=== PATIENT | male | born 2000 | race Caucasian/White ===

== ENCOUNTER 2021-10-04 01:59 | Emergency (ER) | payer OTHER ==
[~2021-10-04] VITALS: Ht 177 cm; Wt 81.0 kg
[2021-10-04 02:07] VITALS: BP 98/29
--- NOTE | 2021-10-04 02:09 | ED Psychosocial ---
General Stated Complaint: ETOH INTOXICATION Source: patient, EMS Exam Limitations: no limitations History of Present Illness Date Seen by Provider: Oct 04, 2021 Time Seen by Provider: 01:57 Initial Comments 21-year-old male with no pertinent past medical history coming in with EMS due to alcohol intoxication. [place] and had numerous shots, and was found passed out in the front yard of someone's house. EMS was then called with the police. Vitals were normal for them. They started an IV and given 1 L of IV fluids. He is denying any pain anywhere, did not hit his head, and otherwise denying any other acute complaints. Allergies and Home Medications Allergies Coded Allergies: No Known Drug Allergies (Unverified , 10/04/21) Patient Home Medication List Home Medication List Reviewed: Yes Review of Systems Constitutional: No fever EENTM: No blurred vision Respiratory: no symptoms reported Cardiovascular: no symptoms reported Gastrointestinal: no symptoms reported Genitourinary: no symptoms reported Musculoskeletal: no symptoms reported Skin: no symptoms reported Psychiatric/Neurological: See HPI All Other Systems Reviewed Negative Unless Noted: Yes Past [id number]-[id number] Hx Patient Social History Substance use?: No Alcohol Use?: Yes Past Medical History Surgeries: No Physical Exam Vital Signs - First Documented 10/04/21 10/04/21 02:07 02:23 Temp 37.0 Pulse 96 Resp 16 B/P (MAP) 98/29 (52) Pulse Ox 98 O2 Delivery Room Air O2 Flow Rate 2.00 Capillary Refill : Height, Weight, BMI Height: '" Weight: lbs. oz. kg; BMI Method: General Appearance: WD/WN, no apparent distress HEENT: PERRL/EOMI, normal ENT inspection, pharynx normal Neck: non-tender, full range of motion, supple, normal inspection Respiratory: chest non-tender, lungs clear, normal breath sounds, no respiratory distress, no accessory muscle use Cardiovascular: regular rate, rhythm, no edema, no murmur Gastrointestinal: normal bowel sounds, non tender, soft; No distended, No guarding, No rebound Extremities: normal range of motion, non-tender, normal inspection, no pedal edema, no calf tenderness, normal capillary refill Neurologic/Psychiatric: no motor/sensory deficits, alert, normal mood/affect, oriented x 3, other (Sleepy but wakes up to voice, slurred speech, normal gait, no neurologic deficits, appears intoxicated) Appearance/Memory: appropriate appearance Behavior/Eye Contact: cooperative Thoughts/Hallucinations: normal thought pattern Skin: normal color, warm/dry Lymphatic: no adenopathy Progress/Results/Core Measures Results/Orders My Orders Orders - BRANDON CAMPBELL MD Cbc With Automated Diff (10/04/21 02:09) Comprehensive Metabolic Panel (10/04/21 02:09) Ed Iv/Invasive Line Start (10/04/21 02:09) Lactated Ringers (Lr 1000 Ml Iv Solution (10/04/21 02:15) Ondansetron Injection (Zofran Injectio (10/04/21 02:15) Medications Given in ED Current Medications Medications Dose Ordered Sig/Dajuan Route Start Time Stop Time Status Last Admin Dose Admin Lactated Ringer's 1,000 ml @ 0 mls/hr Q0M ONCE IV 10/04/21 02:15 10/04/21 02:16 DC 10/04/21 02:16 0 MLS/HR Ondansetron HCl 4 mg ONCE ONCE IVP 10/04/21 02:15 10/04/21 02:16 DC 10/04/21 02:15 4 MG Vital Signs/I&O 10/04/21 10/04/21 02:07 02:23 Temp 37.0 Pulse 96 89 Resp 16 15 B/P (MAP) 98/29 (52) 92/49 Pulse Ox 98 99 O2 Delivery Room Air Nasal Cannula O2 Flow Rate 2.00 Progress Progress Note : Progress Note 21-year-old male coming in due to alcohol intoxication. He is sleepy and slurring words consistent with alcohol intoxication. Vitals are otherwise unremarkable. Neuro exam unremarkable. Friends later arrived and they are willing to watch him tonight. Patient was able to ambulate out of here with them. They will bring him back if they have any concerns tonight. Departure Impression Primary Impression: Acute alcoholic intoxication Qualified Codes: F10.920 - Alcohol use, unspecified with intoxication, uncomplicated Disposition: 01 HOME, SELF-CARE Condition: Stable Departure-Patient Inst. Decision time for Depature: 02:29 Referrals: NO,LOCAL PHYSICIAN (PCP/Family) Primary Care Physician Patient Instructions: Alcohol Poisoning (DC) Add. Discharge Instructions: It is okay to let him sleep tonight. Give plenty of fluids. If you have any concerns you can call 911 or bring him back to the ER. BRANDON CAMPBELL MD Oct 04, 2021 02:09
[2021-10-04] MEDS ORDERED: ONDANSETRON 4 MG/2 ML (SDV) Z0FRAN IVP ONE (02:15)
[2021-10-04] MEDS ORDERED: LACTATED RINGERS 1,000 ML IV ONE (02:15)
[2021-10-04 02:27] LABS: BASOPHILS % (AUTO) 0 % (0-10); EOSINOPHILS % (AUTO) 0 % (0-10); HEMATOCRIT 43 % (40-54); HEMOGLOBIN 14.9 g/dL (13.3-17.7); LYMPHOCYTES # (AUTO) 2.2 10^3/uL (1.0-4.0); LYMPHOCYTES % (AUTO) 16 % (12-44); MEAN CORPUSCULAR HEMOGLOBIN 30 pg (25-34); MEAN CORPUSCULAR HGB CONC 35 g/dL (32-36); MEAN CORPUSCULAR VOLUME 87 fL (80-99); MEAN PLATELET VOLUME 10.7 fL (9.0-12.2); MONOCYTES # (AUTO) 0.4 10^3/uL (0.0-1.0); MONOCYTES % (AUTO) 3 % (0-12); NEUTROPHILS # (AUTO) 10.6 10^3/uL (1.8-7.8); NEUTROPHILS % (AUTO) 80 % (42-75); PLATELET COUNT 220 10^3/uL (130-400); WHITE BLOOD COUNT 13.3 10^3/uL (4.3-11.0)
[2021-10-04 02:50] LABS: CREATININE SERUM 1.1 MG/DL (0.60-1.30)
[2021-10-04 02:51] LABS: ALBUMIN 4.5 GM/DL (3.2-4.5); BILIRUBIN,TOTAL 0.3 MG/DL (0.1-1.0); CALCIUM 8.3 MG/DL (8.5-10.1); TOTAL PROTEIN 6.5 GM/DL (6.4-8.2)
== END 2021-10-04 02:32 | disposition home or self-care (01) ==
LOC: ER FS 02:06
DX: F10.129 Alcohol abuse with intoxication, unspecified (principal); Z28.310 Unvaccinated for COVID-19
CPT/HCPCS: 36415; 80053; 85025; 99283